=== PATIENT | male | born 1965 | race Caucasian/White ===

== ENCOUNTER → 2016-10-31 | Day surgery (SDC) | payer BC ==
[2016-10-31 11:20] LABS: HEMOGLOBIN 15.6 g/dL (14.1-18.0); LYMPH # 1.7 K/mm3 (0.7-4.5); LYMPH % 36.6 % (10-50)
[2016-10-31 11:24] LABS: BUN 5 mg/dL (7-18)
[2016-10-31 11:28] LABS: GFR (ESTIMATED) 89 ML/MIN (>60)
--- NOTE | 2016-10-31 14:54 | RADIOLOGY REPORT PS360 ---
CARDIAC CATHETERIZATION DATE OF CATHETERIZATION:10/31/2016 11:16 AM PROCEDURES: 1. Left heart catheterization 2. Left ventriculogram 3. Selective coronary angiogram 4. Selective engagement left internal mammary artery to the LAD 5. Selective engagement of the saphenous vein graft to the right coronary artery 6. Selective engagement of the saphenous vein graft to the circumflex artery INDICATION FOR TEST: 1. Coronary artery disease 2. Coronary artery bypass surgery 3. Angina pectoris class III and IV 4. Abnormal EKG demonstrating anterior lateral and inferior myocardial infarction Informed consent was obtained prior to the procedure. COMPLICATIONS: None ESTIMATED BLOOD LOSS: Less than 10 ml. TECHNIQUE: One percent lidocaine was used to anesthetize the right groin. The right femoral artery was accessed via the Seldinger technique. A 4-[place] sheath was placed in the right femoral artery. The JL-4 and JR-4 catheter was also used to perform left heart catheterization and left ventriculography. A multipurpose catheter was used intubate the saphenous vein graft to the right coronary artery while the JR4 catheter was used to perform left internal mammary angiography and saphenous vein graft venography to the circumflex artery. At the end of the procedure the patient transferred to the postop holding area in stable condition for sheath removal ANGIOGRAPHIC RESULTS: 1. The left main artery has an ostial and distal 80 and 90% stenosis 2. The left anterior descending artery has mild atheromatous plaque less than 10% with competitive flow from the left internal mammary artery 3. The circumflex artery is a large multi branching vessel. There is competitive flow from the saphenous vein graft in the first obtuse marginal artery 4. The right coronary artery is a dominant vessel and has a proximal concentric 90% in-stent restenotic lesion. There is competitive flow from the vein graft distally 5. The [place] ventriculogram reveals normal 65% 6. The left ventricular end-diastolic pressure 10 mmHg 7. The left internal mammary artery is widely patent to the mid LAD 8. The saphenous vein graft to the first obtuse marginal artery has an ostial proximal long concentric 50% stenosis which still appears to be nonflow limiting 9. The saphenous vein graft to the right coronary artery is a large widely patent graft IMPRESSION: 1. Adequate coronary artery revascularization as described above 2. Normal ejection fraction 3. Normal left ventricular end-diastolic pressure 4. Patent LUND to the LAD 5. Patent saphenous vein graft to the circumflex artery 6. Patent saphenous vein graft to the right coronary artery 7. Severe [place] circulation as described above PLAN: 1. Continue antianginal medication with position of Ranexa 2. LDL less than 55 3. Avoidance of tobacco products 4. Risk factor modification
[2016-10-31 15:53] VITALS: BP 110/65
== END ==
LOC: CATHLAB 10:45
PROVIDERS: Internal Medicine
PROC: B2131ZZ Fluoroscopy of Multiple Coronary Artery Bypass Grafts using Low Osmolar Contrast (ICD-10-PCS; 2016-10-31)
PROC: B2111ZZ Fluoroscopy of Multiple Coronary Arteries using Low Osmolar Contrast (ICD-10-PCS; 2016-10-31)
PROC: B2181ZZ Fluoroscopy of Left Internal Mammary Bypass Graft using Low Osmolar Contrast (ICD-10-PCS; 2016-10-31)
PROC: B2151ZZ Fluoroscopy of Left Heart using Low Osmolar Contrast (ICD-10-PCS; 2016-10-31)
PROC: 4A023N7 Measurement of Cardiac Sampling and Pressure, Left Heart, Percutaneous Approach (ICD-10-PCS; principal; 2016-10-31 12:00)
DX: I25.119 Atherosclerotic heart disease of native coronary artery with unspecified angina pectoris (principal); Z95.1 Presence of aortocoronary bypass graft; Z72.0 Tobacco use; R94.31 Abnormal electrocardiogram [ECG] [EKG]
CPT/HCPCS: C1725; C1769; C1894; J1644; Q9967